=== PATIENT | male | born 1935 | race Caucasian/White ===

== ENCOUNTER 2017-01-07 12:01 | Emergency (ER) | payer MEDICARE, OTHER ==
[2017-01-07 13:08] VITALS: BP 149/77
--- NOTE | 2017-01-07 13:48 | EDM.PDOC ---
ED HPI GENERAL MEDICAL PROBLEM - General Chief Complaint: General Stated Complaint: BLOOD PRESSURE IS HIGH Time Seen by Provider: 01/07/17 13:00 Source of Information: Reports: Patient History Limitations: Reports: No Limitations - History of Present Illness INITIAL COMMENTS - FREE TEXT/NARRATIVE: pt was at [facility] today and he checked his bp and he got 170/90. He had had a very busy morning, He did not sit for a while prior to taking the bp, Onset: Today Duration: Hour(s): Associated Symptoms: Reports: Other (pt had a elevated bp when it was checked at [facility] today. Pt felt ok and has not had any other symptoms. ) denies Pain Score (Numeric/FACES): 0 - Related Data Allergies Allergy/AdvReac Type Severity Reaction Status Date / Time No Known Allergies Allergy Verified 01/07/17 12:47 Home Meds: Home Meds Aspirin 81 mg PO DAILY 01/07/17 [History] Nadolol [Corgard] 10 mg PO DAILY 01/07/17 [History] Past Medical History Cardiovascular History: Reports: Other (See Below) Other Cardiovascular History: WPW diagnosis Oncologic (Cancer) History: Reports: Prostate - Past Surgical History Male Surgical History: Reports: Prostatectomy Musculoskeletal Surgical History: Reports: Other (See Below) Other Musculoskeletal Surgeries/Procedures:: plate in hip Social & Family History - Tobacco Use Smoking Status *Q: Never Smoker Second Hand Smoke Exposure: No - Alcohol Use Days Per Week of Alcohol Use: 7 Number of Drinks Per Day: 1 Total Drinks Per Week: 7 - Recreational Drug Use Recreational Drug Use: No ED ROS GENERAL - Review of Systems Review Of Systems: See Below Constitutional: Reports: No Symptoms HEENT: Reports: No Symptoms Respiratory: Reports: No Symptoms Cardiovascular: Reports: Other (pthas a blood pressure of 141 over 80 atthis point. ) Endocrine: Reports: No Symptoms GI/Abdominal: Reports: No Symptoms : Reports: No Symptoms Musculoskeletal: Reports: No Symptoms Skin: Reports: No Symptoms ED EXAM, GENERAL - Physical Exam Exam: See Below Free Text/Narrative:: pt had a asymptomatic bp of 170 over 90 at [facility] and he was concerned about it. He has been watched here and his bp has gone down to 141/ 80. Exam Limited By: No Limitations General Appearance: Alert, Anxious Ears: Normal TMs Nose: Normal Inspection Throat/Mouth: Normal Inspection Head: Atraumatic Neck: Normal Inspection Respiratory/Chest: No Respiratory Distress Cardiovascular: Regular Rate, Rhythm GI/Abdominal: Soft, Non-Tender Rectal (Males) Exam: Deferred Back Exam: Normal Inspection Extremities: Normal Inspection Neurological: Alert, Oriented, Normal Cognition Course - Vital Signs Last Recorded V/S: Last Vital Signs Temp 36.0 C 01/07/17 12:46 Pulse 57 L 01/07/17 12:46 Resp 16 01/07/17 13:07 BP 149/77 H 01/07/17 13:07 Pulse Ox 98 01/07/17 13:07 - Re-Assessments/Exams Free Text/Narrative Re-Assessment/Exam: 01/07/17 13:49 bp was taken several times and it has come down nicely. Departure - Departure Time of Disposition: 13:49 Disposition: Home, Self-Care 01 Condition: Fair Clinical Impression: Elevated BP without diagnosis of hypertension - Discharge Information Forms: ED Department Discharge Care Plan Goals: cont same meds, when bp is checked sit for a period of time before bp is taken , rtc if problems.
== END 2017-01-07 14:02 | disposition home or self-care (01) ==
LOC: JP.ED 12:01
DX: R03.0 Elevated blood-pressure reading, without diagnosis of hypertension (principal); Z79.82 Long term (current) use of aspirin; Z90.79 Acquired absence of other genital organ(s); Z79.899 Other long term (current) drug therapy
CPT/HCPCS: 99282